=== PATIENT | female | born 1950 | race Caucasian/White ===

== ENCOUNTER 2021-12-07 13:11 | Outpatient (CLI) | payer MEDICARE | END 2021-12-07 13:12 | disposition home or self-care (01) | LOC: CSHULT 13:11 | PROVIDERS: ATTEND Family Medicine | DX: I10 Essential (primary) hypertension (principal); I25.89 Other forms of chronic ischemic heart disease; I63.9 Cerebral infarction, unspecified | CPT/HCPCS: 93880 ==

== ENCOUNTER 2022-03-26 09:37 | Outpatient (CLI) | payer MEDICARE | END 2022-03-26 09:38 | disposition home or self-care (01) | LOC: CSHMRI 09:37 | PROVIDERS: ATTEND Psychiatry & Neurology Neurology | DX: R26.9 Unspecified abnormalities of gait and mobility (principal); M47.812 Spondylosis without myelopathy or radiculopathy, cervical region | CPT/HCPCS: 72156; 82565 ==